=== PATIENT | female | born 1970 | race Two or more races ===

== ENCOUNTER 2018-04-15 | Inpatient (IN) | payer OTHER ==
[2018-04-15] VITALS (13 sets, daily range): BP systolic 121–140; BP diastolic 69–96
[~2018-04-15] VITALS: Ht 162.6 cm; Wt 54.2 kg
[2018-04-15] MEDS ORDERED: ceFAZolin 1gm/50ml Premix 50 ML IV ONE (00:30)
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
[2018-04-15 00:43] LABS: BASOPHILS % (AUTO) 0.6 % (0.0-2.0); EOSINOPHILS % (AUTO) 0.4 % (0.0-3.0); HEMATOCRIT 36.6 % (37.0-47.0); HEMOGLOBIN 12.5 G/DL (12.0-16.0); MEAN CORPUSCULAR VOLUME 93 FL (80-99); MONOCYTES % (AUTO) 3.1 % (1.0-10.0); NEUTROPHILS % (AUTO) 51.9 % (45.0-75.0); PLATELET COUNT 229 K/UL (150-450); RED BLOOD COUNT 3.93 M/UL (4.20-5.40); RED CELL DISTRIBUTION WIDTH 10.4 % (11.6-14.8); WHITE BLOOD COUNT 7.1 K/UL (4.8-10.8)
[2018-04-15 00:49] LABS: ANION GAP 14 mmol/L (5-15); BLOOD UREA NITROGEN 10 mg/dL (7-18); CALCIUM 8.6 MG/DL (8.5-10.1); CARBON DIOXIDE 22 MMOL/L (21-32); CHLORIDE 102 MMOL/L (98-107); CREATININE 0.8 MG/DL (0.55-1.30); POTASSIUM 3.7 MMOL/L (3.5-5.1); SODIUM 138 MMOL/L (136-145)
[2018-04-15 00:58] LABS: ALANINE AMINOTRANSFERASE 20 U/L (12-78); ALKALINE PHOSPHATASE 40 U/L (46-116); ASPARTATE AMINO TRANSFERASE 17 U/L (15-37); BILIRUBIN,TOTAL 0.3 MG/DL (0.2-1.0)
[2018-04-15] MEDS ORDERED: Sodium Chloride 500ML 500 ML IV ONE (01:00)
[2018-04-15] MEDS ORDERED: WOMEN MULTIVIT1 EACH PO (05:27)
[2018-04-15] MEDS ORDERED: CALCIUM + VITA1 EAC1 PO (05:27)
[2018-04-15 06:29] LABS: BASOPHILS % (AUTO) 0.6 % (0.0-2.0); EOSINOPHILS % (AUTO) 0.1 % (0.0-3.0); HEMATOCRIT 34.8 % (37.0-47.0); HEMOGLOBIN 11.9 G/DL (12.0-16.0); LYMPHOCYTES % (AUTO) 24.1 % (20.0-45.0); MEAN CORPUSCULAR VOLUME 93 FL (80-99); MONOCYTES % (AUTO) 2.3 % (1.0-10.0); NEUTROPHILS % (AUTO) 72.9 % (45.0-75.0); PLATELET COUNT 213 K/UL (150-450); RED BLOOD COUNT 3.73 M/UL (4.20-5.40); RED CELL DISTRIBUTION WIDTH 10.6 % (11.6-14.8); WHITE BLOOD COUNT 5.9 K/UL (4.8-10.8)
[2018-04-15 06:58] LABS: ANION GAP 11 mmol/L (5-15); BLOOD UREA NITROGEN 7 mg/dL (7-18); CALCIUM 8.5 MG/DL (8.5-10.1); CARBON DIOXIDE 23 MMOL/L (21-32); CHLORIDE 107 MMOL/L (98-107); CREATININE 0.7 MG/DL (0.55-1.30); SODIUM 141 MMOL/L (136-145)
--- NOTE | 2018-04-15 12:03 | Pre-Procedure Note/Attestation ---
Pre-Procedure Note/Attestation Complete Prior to Procedure Planned Procedure: left Procedure Narrative: Left thumb wound exploration, repair of flexor tendons, digital artery, digital nerve, laceration repair, and repair of other injured structures. Indications for Procedure Pre-Operative Diagnosis: Left hand open wound with disrupted flexor tendons of the thumb, and injured digital nerve and digital artery Attestation I attest that I discussed the nature of the procedure; its benefits; risks and complications; and alternatives (and the risks and benefits of such alternatives ), prior to the procedure, with the patient (or the patient's legal quality assurance representative). I attest that, if there was a reasonable possibility of needing a blood transfusion, the patient (or the patient's legal quality assurance representative) was given the [place] Department [employer] Services standardized written summary, pursuant to the [place] Blood Safety Act ([place] Health and Safety Code # 1645, as amended). I attest that I re-evaluated the patient just prior to the surgery and that there has been no change in the patient's H&P, except as documented below: Raheel Avitia MD Apr 15, 2018 12:03
[2018-04-15] MEDS ORDERED: ceFAZolin sod 1 GM in D5W 55 ML IV ONE (13:00)
[2018-04-15] MEDS ORDERED: Vancomycin 500mg/D5W 110ml IVPB SCH ×2 (13:00)
--- NOTE | 2018-04-15 15:15 | Consultation ---
DATE OF CONSULTATION: 04/15/2018 INFECTIOUS DISEASES CONSULTATION CONSULTING PHYSICIAN: Aung Wyatt M.D. ATTENDING PHYSICIAN: Jay Burt M.D. REASON FOR CONSULTATION: Left hand infection. HISTORY OF PRESENTING ILLNESS: This is a 47-year-old lady with history of ovarian cyst, hysterectomy who states she hurt her hand after injury on a glass. An Infectious Diseases consultation has been obtained for antibiotics. PAST MEDICAL HISTORY: 1. History of ovarian cyst. 2. History of hysterectomy. MEDICATIONS: As an inpatient, she is on Tylenol and ibuprofen. ALLERGIES: No known drug allergies. SOCIAL HISTORY: She is a smoker. She drinks alcohol. No history of drug use. FAMILY HISTORY: Noncontributory. REVIEW OF SYSTEMS: RESPIRATORY: No fever, chills, cough, shortness of breath or chest pain. CARDIAC: No chest pain. No palpitation. No dizziness. No syncope. GASTROINTESTINAL: No nausea. No vomiting. No abdominal pain or diarrhea. MUSCULOSKELETAL: She complains of left hand pain. PHYSICAL EXAMINATION: VITAL SIGNS: Temperature of 98.3, T-max of 98.4, pulse of 75, respiratory rate of 19, blood pressure 121/69, O2 saturation of 100% HEENT: Pupils equally reactive to light and accommodation. Mouth appears clean without thrush. NECK: Supple. No adenopathy. No JVD. CARDIOVASCULAR: Regular rate and rhythm. No murmurs. LUNGS: Clear to auscultation bilaterally. No crackles. No wheezes. ABDOMEN: Soft and nontender. No organomegaly. EXTREMITIES: No cyanosis, no clubbing, no edema. Left hand, tear noted through the muscle and she is unable to flex with thumb. LABORATORY AND DIAGNOSTIC DATA: White count of 5.9, hemoglobin 11.9, hematocrit 34.8, MCV 93, platelet count of 213 with neutrophils of 72%. Sodium 141, potassium 4, chloride 107, bicarb 23, BUN 7, creatinine 0.7, glucose 105. Calcium 8.5. Total bilirubin 0.3, AST 17, ALT 20, alkaline phosphatase 40, total protein 8.2, albumin 4. UA is showing beta HCG negative. ASSESSMENT: 1. This is a 47-year-old lady with history of ovarian cyst who had trauma for left hand by cutting it on a glass. She has a tendon laceration to the left thumb, would be concerned regarding cellulitis of the left hand 2. History of ovarian cyst. PLAN: 1. We will start the patient on IV vancomycin. 2. We would suggest Orthopedic evaluation. I would like to thank, Dr. Burt, for this consultation. Aung Wyatt M.D. DR: Nichelle JOB#: [id number] CC: Jay Burt M.D.; Fax#: [phone]
[2018-04-15] MEDS ORDERED: LR 1000ml 1,000 ML IVLG SCH (15:54)
--- NOTE | 2018-04-15 15:58 | Anethesia Preoperative Eval ---
Anesthesia Pre-op PMH/ROS General Date of Evaluation: Apr 15, 2018 Time of Evaluation: 15:56 Anesthesiologist: Ernesto ASA Score: ASA 2 - Emergency Mallampati Score Class I : Soft palate, uvula, fauces, pillars visible Class II: Soft palate, uvula, fauces visible Class III: Soft palate, base of uvula visible Class IV: Only hard plate visible Mallampati Classification: Class II Surgeon: Sadi Diagnosis: L Hand Lac Surgical Procedure: I and D L Hand Lac, repair, possible tendon lac Anesthesia History: none Family History: no anesthesia problems Allergies: Coded Allergies: No Known Allergies (Unverified , 04/15/18) Medications: see eMAR Patient NPO?: Yes NPO Date: Apr 14, 2018 NPO Time: 2330 Past Medical History Gastrointestinal/Genitourinary: Reports: other - Ovarian Cyst Hematology/Immune: Reports: anemia PSxH Narrative: FRANCES Anesthesia Pre-op Phys. Exam Physician Exam Last Vital Signs Date Time Temp Pulse Resp B/P (MAP) Pulse Ox O2 Delivery O2 Flow Rate FiO2 04/15/18 13:12 98.3 04/15/18 12:00 72 18 134/85 (101) 100 04/15/18 09:00 Room Air Constitutional: NAD Neurologic: CN 2-12 intact Cardiovascular: RRR Respiratory: CTA Gastrointestinal: S/NT/ND Airway Exam Mallampati Score: Class II MO: full ROM: full Teeth: missing, intact Anesthesia Pre-op A/P Labs Hematology Test 04/15/18 00:30 04/15/18 06:05 White Blood Count 7.1 K/UL (4.8-10.8) 5.9 K/UL (4.8-10.8) Red Blood Count 3.93 M/UL (4.20-5.40) L 3.73 M/UL (4.20-5.40) L Hemoglobin 12.5 G/DL (12.0-16.0) 11.9 G/DL (12.0-16.0) L Hematocrit 36.6 % (37.0-47.0) L 34.8 % (37.0-47.0) L Mean Corpuscular Volume 93 FL (80-99) 93 FL (80-99) Mean Corpuscular Hemoglobin 31.9 PG (27.0-31.0) H 31.8 PG (27.0-31.0) H Mean Corpuscular Hemoglobin Concent 34.3 G/DL (32.0-36.0) 34.2 G/DL (32.0-36.0) Red Cell Distribution Width 10.4 % (11.6-14.8) L 10.6 % (11.6-14.8) L Platelet Count 229 K/UL (150-450) 213 K/UL (150-450) Mean Platelet Volume 8.4 FL (6.5-10.1) 8.8 FL (6.5-10.1) Neutrophils (%) (Auto) 51.9 % (45.0-75.0) 72.9 % (45.0-75.0) Lymphocytes (%) (Auto) 44.0 % (20.0-45.0) 24.1 % (20.0-45.0) Monocytes (%) (Auto) 3.1 % (1.0-10.0) 2.3 % (1.0-10.0) Eosinophils (%) (Auto) 0.4 % (0.0-3.0) 0.1 % (0.0-3.0) Basophils (%) (Auto) 0.6 % (0.0-2.0) 0.6 % (0.0-2.0) Coagulation Test 04/15/18 00:30 Prothrombin Time 10.2 SEC (9.30-11.50) Prothromb Time International Ratio 1.0 (0.9-1.1) Activated Partial Thromboplast Time 24 SEC (23-33) Chemistry Test 04/15/18 00:30 04/15/18 06:05 Sodium Level 138 MMOL/L (136-145) 141 MMOL/L (136-145) Potassium Level 3.7 MMOL/L (3.5-5.1) 4.0 MMOL/L (3.5-5.1) Chloride Level 102 MMOL/L (98-107) 107 MMOL/L (98-107) Carbon Dioxide Level 22 MMOL/L (21-32) 23 MMOL/L (21-32) Anion Gap 14 mmol/L (5-15) 11 mmol/L (5-15) Blood Urea Nitrogen 10 mg/dL (7-18) 7 mg/dL (7-18) Creatinine 0.8 MG/DL (0.55-1.30) 0.7 MG/DL (0.55-1.30) Estimat Glomerular Filtration Rate > 60 mL/min (>60) > 60 mL/min (>60) Glucose Level 102 MG/DL (74-106) 105 MG/DL (74-106) Calcium Level 8.6 MG/DL (8.5-10.1) 8.5 MG/DL (8.5-10.1) Total Bilirubin 0.3 MG/DL (0.2-1.0) Aspartate Amino Transf (AST/SGOT) 17 U/L (15-37) Alanine Aminotransferase (ALT/SGPT) 20 U/L (12-78) Alkaline Phosphatase 40 U/L (46-116) L Total Protein 8.2 G/DL (6.4-8.2) Albumin 4.0 G/DL (3.4-5.0) Globulin 4.2 g/dL Albumin/Globulin Ratio 1.0 (1.0-2.7) Urine Test Test 04/15/18 00:50 Urine HCG, Qualitative Negative (NEGATIVE) Risk Assessment & Plan Assessment: ASA 2E Plan: GA, SED Status Change Before Surgery: No Pre-Antibiotics Dru Gram Ancef IV Given Within 1 Hr of Incision: Yes Time Given: 16:16 Mason Orozco MD Apr 15, 2018 15:58
[2018-04-15] MEDS ORDERED: Atropine Sulfate 0.4mg/ml inj IVP PRN (16:00)
[2018-04-15] MEDS ORDERED: fentaNYL 100 mcg/2 mL IV PRN (16:00)
[2018-04-15] MEDS ORDERED: Dexamethasone 4mg/ml vial ONE (16:00)
[2018-04-15] MEDS ORDERED: Norco 5mg/325mg tab ORAL PRN (16:00)
[2018-04-15] MEDS ORDERED: DiphenhydrAMINE 50mg/ml Inj IVP PRN (16:00)
[2018-04-15] MEDS ORDERED: Hydromorphone 0.5mg/0.5ml inj IVP PRN (16:00)
[2018-04-15] MEDS ORDERED: Lidocaine 1% MPF 10mg/ml 5ml ONE (16:00)
[2018-04-15] MEDS ORDERED: Meperidine 50mg/ml Inj(FOR RIGORS ONLY) IVP PRN (16:00)
[2018-04-15] MEDS ORDERED: HYDROcodone/Acetamin 7.5/325 tab ORAL PRN (16:00)
[2018-04-15] MEDS ORDERED: oxyCODONE HCL/Acetaminophen 5/325mg ORAL PRN ×2 (16:00→18:30)
[2018-04-15] MEDS ORDERED: Midazolam 2mg/2ml Inj IVP PRN (16:00)
[2018-04-15] MEDS ORDERED: Sodium Chloride 10ml vial INJ ONE (16:00)
[2018-04-15] MEDS ORDERED: LORazepam Inj 2mg/ml 1ml IV PRN (16:00)
[2018-04-15] MEDS ORDERED: Metoclopramide 10mg/2ml Inj IVP PRN (16:00)
[2018-04-15] MEDS ORDERED: Propofol 200mg/20ml IV ONE (16:00)
--- NOTE | 2018-04-15 16:00 | Immediate Post-Op Evaluation ---
Immediate Post-Op Evalulation Immediate Post-Op Evalulation Procedure: I and D L Hand Lac, repair, possible tendon lac Date of Evaluation: Apr 15, 2018 Time of Evaluation: 18:28 IV Fluids: 500 LR Blood Products: 0 Estimated Blood Loss: 10 Urinary Output: 0 Blood Pressure Systolic: 123 Blood Pressure Diastolic: 72 Pulse Rate: 81 Respiratory Rate: 16 O2 Sat by Pulse Oximetry: 100 Temperature (Fahrenheit): 98.2 Pain Score (1-10): 1 Nausea: No Vomiting: No Complications 0 Patient Status: awake, reacts, patent, extubated, none Hydration Status: adequate Dru Gram Ancef IV Given Within 1 Hr of Incision: Yes Time Given: 16:16 Mason Orozco MD Apr 15, 2018 16:00
[2018-04-15] MEDS ORDERED: Alfentanil 2ml Inj ONE (16:01)
[2018-04-15] MEDS ORDERED: Bacitracin Oint 15gm Tube TOPIC ONE (16:02)
[2018-04-15] MEDS ORDERED: Bacitracin 50000 Units Vial ONE (16:03)
[2018-04-15] MEDS ORDERED: Bupivacaine w/Epi 0.25% 30ml Vial INJ ONE (16:03)
[2018-04-15] MEDS ORDERED: Lidocaine 1% 10mg/ml/Epi 0.005mg/ml 30ml vial INJ ONE (16:03)
[2018-04-15] MEDS ORDERED: Ketamine 500mg Inj ONE (16:04)
--- NOTE | 2018-04-15 18:27 | Brief Operative Note ---
Immediate Post Operative Note Operative Note Chief Complaint: Left hand laceration, thumb numbness, and unable to flex thumb Pre-op Diagnosis: Left hand open wound with disrupted flexor tendons of the thumb, and injured digital nerve and digital artery Procedure: Left hand wound exploration, laceration repair, repair or ulnar digital nerve and artery of the left thumb, repair of flexor policis longus, flexor policis brevis, and adductor pollicis Post-op Diagnosis: Base of left thumb laceration, complete transection of the followin. flexor pollicis longus 2. flexor pollicis brevis 3. Adductor pollicis 4. ulnar digital nerve to thumb 5. ulnar digital artery to thumb Findings: consistent w/pre-op dx studies Surgeon: Raheel Avitia MD Computer Numeric Control Setter: None Anesthesiologist: Ernesto Anesthesia: general Specimen: none Complications: none Condition: stable Fluids: see anesthesia record Estimated Blood Loss: minimal Drains: none Packing: None Tourniquet time: 90 Implant(s) used?: No Raheel Avitia MD Apr 15, 2018 18:27
[2018-04-15] MEDS: D5 1/2NS 1,000 ML IV SCH ×2 (18:30→20:07)
[2018-04-15] MEDS ORDERED: HYDROmorphone 1mg/ml Carpuject SUBQ PRN (18:30)
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
[2018-04-15] MEDS ORDERED: Cephalexin 500mg cap ORAL SCH (21:00)
[2018-04-15] MEDS ORDERED: PERCOCET 5-3251 EACH ORAL (23:05)
[2018-04-15] MEDS ORDERED: CEPHALEXIN500 MG ORAL (23:06)
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
== END 2018-04-15 23:39 | disposition home or self-care (01) | DRG 513 ==
LOC: EMR 00:36 → 3E 01:26 → EDBEDREQ 01:57
PROC: 03QA0ZZ Repair Left Ulnar Artery, Open Approach (ICD-10-PCS; principal; 2018-04-15 16:00)
PROC: 0LQ80ZZ Repair Left Hand Tendon, Open Approach (ICD-10-PCS; principal; 2018-04-15 16:00)
PROC: 01Q40ZZ Repair Ulnar Nerve, Open Approach (ICD-10-PCS; principal; 2018-04-15 16:00)
DX: S66.022A Laceration of long flexor muscle, fascia and tendon of left thumb at wrist and hand level, initial encounter (principal); S65.412A Laceration of blood vessel of left thumb, initial encounter; S64.32XA Injury of digital nerve of left thumb, initial encounter; S61.012A Laceration without foreign body of left thumb without damage to nail, initial encounter; W01.110A Fall on same level from slipping, tripping and stumbling with subsequent striking against sharp glass, initial encounter
CPT/HCPCS: 36415; 80048; 80053; 81025; 85025; 85610; 85730; 96365; 96367; 96372; 96375; 99284; J2405; J3490